=== PATIENT | female | born 1950 | race Caucasian/White ===

== ENCOUNTER 2018-03-27 14:17 | Emergency (ER) | payer OTHER, MEDICARE ==
[~2018-03-27] VITALS: Ht 165.1 cm; Wt 98.0 kg
[2018-03-27 14:30] VITALS: BP 132/59; PULSE 85; RESP 18; TEMP 97.8; O2SAT 95
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
[2018-03-27] MEDS ORDERED: SODIUM CHLOR 0.9% 1000 ML INJ 1,000 ML IV SCH (14:43)
[2018-03-27] MEDS ORDERED: SODIUM CHLORIDE 0.9% FLUSH 10 ML FLUSH IVF PRN (14:45)
[2018-03-27] MEDS ORDERED: MORPHINE SULFATE 2 MG/ML SYRINGE IV PUSH ONE (14:45)
[2018-03-27] MEDS ORDERED: ONDANSETRON ODT 4 MG TAB PO ONE (14:45)
[2018-03-27] MEDS ORDERED: AMLO5TAB2 PO (14:46)
[2018-03-27] MEDS ORDERED: CALC1TAB12 PO (14:46)
[2018-03-27] MEDS ORDERED: CITA40TA4 PO (14:46)
[2018-03-27] MEDS ORDERED: BENA10TA PO (14:46)
[2018-03-27] MEDS ORDERED: LAMO25CH CHEW (14:46)
[2018-03-27] MEDS ORDERED: MORPHINE SULFATE 4 MG/ML INJ IM ONE (15:00)
[2018-03-27 15:27] VITALS: BP 120/63; PULSE 81; RESP 16; O2SAT 96
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
[2018-03-27 15:40] LABS: BICARBONATE 23.5 MEQ/L (21.0-32.0); CALCIUM 10.3 MG/DL (8.5-10.1); CREATININE 1.09 MG/DL (0.50-1.00)
[2018-03-27 15:48] LABS: BASOPHIL # 0.1 TH/MM3 (0-0.2); BASOPHIL % 0.7 % (0.0-2.0); HEMATOCRIT 41.8 % (35.0-46.0); HEMOGLOBIN 14.2 GM/DL (11.6-15.3); LYMPH % 12.4 % (9.0-44.0); MEAN CELL VOLUME 89.1 FL (80.0-100.0); MEAN CORPUSCULAR HEMOGLOBIN 30.3 PG (27.0-34.0); MONO % 5.7 % (0.0-8.0); MONOCYTE # 0.9 TH/MM3 (0-0.9); NEUT % 81.2 % (16.0-70.0); PLATELET COUNT 168 TH/MM3 (150-450); RED CELL DISTRIBUTION WIDTH 13.9 % (11.6-17.2)
[2018-03-27] MEDS ORDERED: LORazepam 2 MG/ML VIAL ONE (16:39)
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
[2018-03-27 17:08] LABS: PROTHROMBIN TIME - PATIENT 10.6 SEC (9.8-11.6)
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
[2018-03-27] MEDS ORDERED: IOHEXOL 350 MG/ML 10 ML VIAL (for RAD DIAG) IVCONTRAST ONE (17:13)
[2018-03-27] MEDS ORDERED: MORPHINE SULFATE 4 MG/ML INJ IV PUSH ONE (17:15)
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
[2018-03-27] MEDS ORDERED: NORC5TAB PO (17:45)
[2018-03-27] MEDS ORDERED: IBUP-232 PO (17:45)
[2018-03-27 18:03] VITALS: BP 121/72; PULSE 71; RESP 18; O2SAT 99
[2018-03-27 18:23] VITALS: BP 120/75
== END 2018-03-27 18:25 | disposition home or self-care (01) ==
LOC: NEPC 14:17
DX: S22.41XA Multiple fractures of ribs, right side, initial encounter for closed fracture (principal); S00.83XA Contusion of other part of head, initial encounter; I10 Essential (primary) hypertension; V89.2XXA Person injured in unspecified motor-vehicle accident, traffic, initial encounter
CPT/HCPCS: 70450; 71045; 71260; 72125; 73564; 74177; 80048; 85025; 85610; 85730; 94150; 96361; 96372; 96374; 99285; J2060; J2270; J7030; Q9967